=== PATIENT | female | born 1985 | race African-American/Black ===

== ENCOUNTER 2018-12-26 16:20 | Emergency (ER) | payer OTHER ==
[2018-12-26 17:58] LABS: Absolute Lymphocytes (CBC) 2.1 K/uL (0.7-4.9); Basophils % 1.2 % (0-1.3); Eosinophils % 7.4 % (0-4.4); Hematocrit 32.5 % (36.0-45.0); Lymphocytes % 45.3 % (15.3-44.8); Monocytes % 7.9 % (3.3-12.3); RBC Red Blood Cell Count 4.28 M/uL (3.86-4.86)
[2018-12-26 18:22] LABS: Urine Blood NEGATIVE (NEG); Urine Glucose NEGATIVE (NEG); Urine Protein NEGATIVE (NEG)
[2018-12-26 18:30] LABS: ALT/SGPT 14 U/L (12-78); AST/SGOT 13 U/L (15-37); Albumin 3.8 g/dL (3.4-5.0); Alkaline Phosphatase 80 U/L (45-117); BUN Blood Urea Nitrogen 11 mg/dL (7-18); Bicarbonate 29 mmol/L (21-32); Bilirubin Total 0.2 mg/dL (0.2-1.0); Glucose Level 95 mg/dL (74-106); Potassium 3.9 mmol/L (3.5-5.1); Protein, Total 7.8 g/dL (6.4-8.2); Sodium Level 140 mmol/L (136-145)
--- NOTE | 2018-12-26 19:04 | ER ---
Nurse's Notes [facility] Name: Kenyatta Patrick Age: 33 yrs Sex: Female : 1985 Arrival Date: 12/26/2018 Time: 16:23 Bed 28 Private MD: Diagnosis: Chronic pharyngitis Presentation: 12/26 16:32 Presenting complaint: Patient states: i cannot breathe and its been of and on; my hj throat is sore and i feel its closing on me; this started this morning; denies fever and chills;. Transition of care: patient was not received from another setting of care. Onset of symptoms was December 26, 2018. Risk Assessment: Do you want to hurt yourself or someone else? Patient reports no desire to harm self or others. Initial Sepsis Screen: Does the patient meet any 2 criteria? No. Patient's initial sepsis screen is negative. Does the patient have a suspected source of infection? No. Patient's initial sepsis screen is negative. Care prior to arrival: None. 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 - Social history:: Smoking status: Patient/guardian denies using tobacco. - Ebola Screening: : Patient negative for fever greater than or equal to 101.5 degrees Fahrenheit, and additional compatible Ebola Virus Disease symptoms Patient denies exposure to infectious person Patient denies travel to an Ebola-affected area in the 21 days before illness onset No symptoms or risks identified at this time. Screenin:40 Abuse screen: Denies threats or abuse. Denies injuries from another. Nutritional sg screening: No deficits noted. Tuberculosis screening: No symptoms or risk factors identified. Never had TB. Fall Risk None identified. Assessment: 17:40 General: Appears in no apparent distress. well groomed, well developed, well nourished, sg Behavior is calm, cooperative, appropriate for age. Pain: Complains of pain in sore throat Quality of pain is described as aching. Neuro: Level of Consciousness is awake, alert, obeys commands, Oriented to person, place, time, Speech is normal, Facial symmetry appears normal. Cardiovascular: Capillary refill is brisk in bilateral fingers Patient's skin is warm and dry. Chest pain is denied. Cardiovascular: Heart tones S1 S2 present. Respiratory: Airway is patent Respiratory effort is even, unlabored, Respiratory pattern is regular, symmetrical, Breath sounds are clear. GI: Abdomen is round non-distended, Bowel sounds present X 4 quads. : No signs and/or symptoms were reported regarding the genitourinary system. EENT: Reports pain when swallowing sore throat. Derm: Skin is pink, warm \T\ dry. Musculoskeletal: Circulation, motion, and sensation intact. Range of motion: intact in all extremities. Vital Signs: 16:34 BP 139 / 81; Pulse 70; Resp 18; Temp 98.8(O); Pulse Ox 100% on R/A; Weight 79.83 kg; hj Height 5 ft. 7 in. (170.18 cm); Pain 6/10; 16:34 Body Mass Index 27.56 (79.83 kg, 170.18 cm) ED Course: 16:23 Patient arrived in ED. mr 16:33 Triage completed. 16:33 Arm band placed on. 16:47 Kaleb Lopez PA is PHCP. [facility] 16:47 Álvaro Moon MD is Attending Physician. [facility] 16:51 Kamar Cortés, JULIOCESAR is Primary Nurse. 17:42 Initial lab(s) drawn, by mn, sent to lab. Strep swab sent to lab. Inserted saline lock: sg 22 gauge in left upper arm, using aseptic technique. Blood collected. 19:03 Renee Cao MD is Referral Physician. [facility] 19:03 Jeramie Grover MD is Referral Physician. [facility] 19:10 Patient has correct armband on for positive identification. Bed in low position. Call sg light in reach. Pulse ox on. NIBP on. 19:10 No provider procedures requiring assistance completed. IV discontinued, intact, sg bleeding controlled, No redness/swelling at site. Pressure dressing applied. Administered Medications: No medications were administered Outcome: 19:03 Discharge ordered by . [facility] 19:10 Discharged to home ambulatory, with family. 19:10 Condition: good 19:10 Discharge instructions given to patient, Instructed on discharge instructions, follow up and referral plans. medication usage, safety practices, Demonstrated understanding of instructions, follow-up care, medications, Prescriptions given X 1. 19:15 Patient left the ED. sg Signatures: Kamar Cortés RN RN Kaleb Rodriguez PA PA jmm Rivera, Mary mr CristhianChuy RN RN hj Corrections: (The following items were deleted from the chart) 16:35 16:34 Pulse 70bpm; Resp 18bpm; Pulse Ox 100% RA; Temp 98.8F Oral; 79.83 kg; Height 5 hj ft. 7 in.; BMI: 27.5; Pain 6/10; hj 17:16 16:32 Acuity: RAN 4 hj hj
--- NOTE | 2018-12-26 19:04 | EDPHYS ---
Physician Documentation [facility] Name: Kenyatta Patrick Age: 33 yrs Sex: Female : 1985 Arrival Date: 12/26/2018 Time: 16:23 Bed 28 Private MD: ED Physician Álvaro Moon HPI: 12/26 17:06 This 33 yrs old Black Female presents to ER via Ambulatory with complaints of Breathing jmm Difficulty, Sore Throat. 17:06 The patient presents with sore throat. Onset: The symptoms/episode began/occurred jmm gradually, 3 month(s) ago. Modifying factors: The symptoms are alleviated by nothing, the symptoms are aggravated by nothing. Associated signs and symptoms: Pertinent positives: shortness of breath Pertinent negatives cough, fever. This is a 33 year old female with a history of anemia that presents to the ED with complaints of intermittent throat pain and swelling for the past 3 months worsening today. patient denies fever or cough. . 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 - Social history:: Smoking status: Patient/guardian denies using tobacco. - Ebola Screening: : Patient negative for fever greater than or equal to 101.5 degrees Fahrenheit, and additional compatible Ebola Virus Disease symptoms Patient denies exposure to infectious person Patient denies travel to an Ebola-affected area in the 21 days before illness onset No symptoms or risks identified at this time. ROS: 17:06 Constitutional: Negative for fever, chills, and weight loss, Cardiovascular: Negative jmm for chest pain, palpitations, and edema. 17:06 Abdomen/GI: Negative for abdominal pain, nausea, vomiting, diarrhea, and constipation, Back: Negative for injury and pain, Neuro: Negative for headache, weakness, numbness, tingling, and seizure. 17:06 ENT: Positive for sore throat. 17:06 Respiratory: Positive for shortness of breath. 17:06 All other systems are negative. Exam: 17:06 Constitutional: This is a well developed, well nourished patient who is awake, alert, jmm and in no acute distress. Head/Face: atraumatic. Eyes: EOMI, no conjunctival erythema appreciated 17:06 Neck: Trachea midline, Supple Chest/axilla: Normal chest wall appearance and motion. 17:06 Abdomen/GI: Non distended, soft Back: Normal ROM Skin: General appearance color normal MS/ Extremity: Moves all extremities, no obvious deformities appreciated, no edema noted to the lower extremities Neuro: Awake and alert, normal gait Psych: Behavior is normal, Mood is normal, Patient is cooperative and pleasant 17:06 ENT: Posterior pharynx: erythema, that is mild. 17:06 Cardiovascular: Rate: normal, Rhythm: regular. 17:06 Respiratory: the patient does not display signs of respiratory distress, Respirations: normal, Breath sounds: are clear throughout. Vital Signs: 16:34 BP 139 / 81; Pulse 70; Resp 18; Temp 98.8(O); Pulse Ox 100% on R/A; Weight 79.83 kg; hj Height 5 ft. 7 in. (170.18 cm); Pain 6/10; 16:34 Body Mass Index 27.56 (79.83 kg, 170.18 cm) MDM: 17:06 Patient medically screened. [facility] 19:02 Data reviewed: vital signs, nurses notes. Counseling: I had a detailed discussion with lilian the patient and/or guardian regarding: the historical points, exam findings, and any diagnostic results supporting the discharge/admit diagnosis, lab results, the need for outpatient follow up, to return to the emergency department if symptoms worsen or persist or if there are any questions or concerns that arise at home. ED course: Symptoms are chronic. Patient is alert and non toxic in appearance in the ED. No signs of resp distress are appreciated. I discussed the need for further evaluation by ENT/GI and otherwise given strict return precautions. Patient understood and agrees with the plan of care. . 12/26 17:06 Order name: Strep [facility] 12/26 17:06 Order name: Craig Screen Profile [facility] 12/26 17:06 Order name: CBC with Diff; Complete Time: 18:14 [facility] 12/26 17: Order name: CMP; Complete Time: 18:44 [facility] 12/26 17:10 Order name: Group A Streptococcus Rapid Sc; Complete Time: 18:44 [facility] 12/26 17:10 Order name: Craig Screen; Complete Time: 18:58 [facility] 12/26 17:06 Order name: Urine Dipstick-Ancillary (obtain specimen); Complete Time: 17:48 [facility] 12/26 17:06 Order name: Saline Lock; Complete Time: 17:46 [facility] 12/26 17:56 Order name: Urine Dipstick--Ancillary (enter results); Complete Time: 18:44 12/26 17:56 Order name: Urine --Ancillary (enter results); Complete Time: 18:44 12/26 18:29 Order name: Throat Culture EDMS Administered Medications: No medications were administered Disposition: 12/27 07:49 Co-signature as Attending Physician, Álvaro Moon MD I agree with the assessment and kdr plan of care. Disposition: 12/26/18 19:03 Discharged to Home. Impression: Chronic pharyngitis. - Condition is Stable. - Discharge Instructions: Pharyngitis. - Prescriptions for Medrol (Artem) 4 mg Oral Tablets, Dose Pack - take 1 tablet by ORAL route as directed - follow package instructions; 1 packet. - Medication Reconciliation Form, Thank You Letter, Antibiotic Education, Prescription Opioid Use form. - Follow up: Renee Cao MD; When: 1 - 2 days; Reason: Recheck today's complaints, Continuance of care, Re-evaluation by your physician. Follow up: Jeramie Grover MD; When: 2 - 3 days; Reason: Recheck today's complaints, Continuance of care, Re-evaluation by your physician. Signatures: Dispatcher [employer] [facility] Kamar Cortés RN RN sg Rittger, Kevin, MD MD kdr Mickail, Joel, PA PA [facility] Chuy Morrow RN RN Corrections: (The following items were deleted from the chart) 12/26 19:15 19:03 12/26/2018 19:03 Discharged to Home. Impression: Chronic pharyngitis. Condition sg is Stable. Forms are Medication Reconciliation Form, Thank You Letter, Antibiotic Education, Prescription Opioid Use. Follow up: Renee Cao; When: 1 - 2 days; Reason: Recheck today's complaints, Continuance of care, Re-evaluation by your physician. Follow up: Jeramie Grover; When: 2 - 3 days; Reason: Recheck today's complaints, Continuance of care, Re-evaluation by your physician. [email or web address]
== END 2018-12-26 19:15 | disposition home or self-care (01) ==
LOC: ER 16:20
DX: J31.2 Chronic pharyngitis (principal)
CPT/HCPCS: 36415; 80053; 81003; 81025; 85025; 86308; 87070; 87081; 99284